=== PATIENT | male | born 1965 | race African-American/Black ===

== ENCOUNTER 2019-01-27 14:46 | Inpatient (IN) | payer OTHER ==
[~2019-01-27 14:46] MED LIST: chlordiazePOXIDE HCL 25 MG CAPSULE PO ONE
[2019-01-27 17:31] VITALS: BMI 16.1
--- NOTE | 2019-01-27 18:40 | HP ---
CIWA Score Nausea/Vomitin Muscle Tremors: 4-Moderate,w/Arms Extend Anxiety: 4-Mod. Anxious/Guarded Agitation: 1-Slight > Activity Paroxysmal Sweats: No Perspiration Orientation: 0-Oriented Tacttile Disturbances: 0-None Auditory Disturbances: 0-None Visual Disturbances: 0-None Headache: 0-None Present CIWA-Ar Total Score: 12 - Admission Criteria OASAS Guidelines: Admission for Medically Managed Detox: Requires at least one of the followin. CIWA greater than 12 2. Seizures within the past 24 hours 3. Delirium tremens within the past 24 hours 4. Hallucinations within the past 24 hours 5. Acute intervention needed for co occurring medical disorder 6. Acute intervention needed for co occurring psychiatric disorder 7. Severe withdrawal that cannot be handled at a lower level of care (continued vomiting, continued diarrhea, abnormal vital signs) requiring intravenous medication and/or fluids 8. Patient presents the following: CIWA greater than 12 Admission Criteria Met: Admission criteria met Admission ROS S - HPI Allergies/Adverse Reactions: Allergies Allergy/AdvReac Type Severity Reaction Status Date / Time shellfish derived Allergy Verified 01/27/19 18:27 History of Present Illness: pt here requesting detox from etoh use , reports 2 beers /day x 40 oz and 1- 2 drinks , x 4 years , reports withdrawal seizures currently on Dilantin , was in [facility] yesterday , d/c w/rx for Librium, pt requesting inpatient detox, states latest taken Dilantin is today , current symptoms as above . Denies blackouts, reports tremors if not drinking , reports wt loss 5-6 lbs in the last 2 months . denies illicits tobacco : denies , quit 25 years ago PMHX : as above, HLD , insomnia , shirin knee OA , lumbar disc displacement PSHx : abdominal surgery does not recall reason for surgery PSych ; denies meds : Dilantin, MVI, FE , folic a , ROsuvastatin , Disulfiram. SHx : lives w/ , used to be emergency vehicle driver , worked maintenance , stopped working in 2013 . Exam Limitations: Clinical Condition - Ebola screening Have you traveled outside of the country in the last 21 days: No Have you had contact with anyone from an Ebola affected area: No Have you been sick,other than usual withdrawal symptoms: No - Review of Systems Constitutional: See HPI, Loss of Appetite, Unintentional Wgt. Loss, Other ( reports hiccups at times) EENT: reports: Other (bifocals ,) Respiratory: reports: No Symptoms reported Cardiac: reports: No Symptoms Reported GI: reports: Poor Appetite, Indigestion, Other (GERD) : reports: No Symptoms Reported Musculoskeletal: reports: Back Pain, Joint Pain Integumentary: reports: Rash (shirin dorsum of hands, reports wearing powdered gloves for years thinks he has constant irritation from the powder) Neuro: reports: Seizure, Unsteady Gait Endocrine: reports: No Symptoms Reported Psychiatric: reports: Orientated x3, Anxious Patient History - Smoking Cessation Smoking history: Former smoker Have you smoked in the past 12 months: No If you are a former smoker, when did you quit?: 25 years ago Hx Chewing Tobacco Use: No Initiated information on smoking cessation: No Family Disease History - Family Disease History Family Disease History: Other: Father (d. 55 DM ), Mother (85 , htn), Brother ( 57 ), Sister (62 & 42 ), Daughter (32 A & W ) Other Family History: 9 y.o. grandson A & W Admission Physical Exam S - Vital Signs Vital Signs: Vital Signs - 24 hr 01/27/19 17:29 Temperature 98.1 F Pulse Rate 114 H Respiratory 18 Rate Blood Pressure 103/62 - Physical General Appearance: Yes: Moderate Distress, Cachetic, Tremorous, Anxious HEENTM: Yes: EOMI, Hearing grossly Normal, Normocephalic, Normal Voice Respiratory: Yes: Chest Non-Tender, Lungs Clear, Normal Breath Sounds Neck: Yes: No masses,lesions,Nodules, Trachea in good position Cardiology: Yes: Regular Rhythm, Regular Rate Abdominal: Yes: Normal Bowel Sounds, Flat, Soft, Surgical Scar (midline anterior infra umbilical) Genitourinary: Yes: Within Normal Limits Musculoskeletal: Yes: full range of Motion Extremities: Yes: Normal Capillary Refill, Normal Range of Motion, Tremors Neurological: Yes: Motor Strength 5/5 Integumentary: Yes: Normal Color - Diagnostic (1) Alcohol dependence Current Visit: Yes Status: Acute Qualifiers: Substance use status: in withdrawal (2) Alcohol withdrawal seizure Current Visit: Yes Status: Acute Qualifiers: Complication of substance-induced condition: uncomplicated Qualified Code(s ): F10.230 - Alcohol dependence with withdrawal, uncomplicated [facility] Breath Alcohol Content Breath Alcohol Content: 0 Urine Drug Screen - Results Drug Screen Negative: No Urine Drug Screen Results: BAR-Barbiturates, BZO-Benzodiazepines Inpatient Rehab Admission - Rehab Decision to Admit Inpatient rehab admission?: No
[2019-01-27] MEDS ORDERED: MAGNESIUM CITRATE 300 ML BOTTLE PO PRN (18:57)
[2019-01-27] MEDS ORDERED: MAGNESIUM HYDROX 2400MG/30ML ORAL SUSPENSION 30 ML CUP PO PRN (18:57)
[2019-01-27] MEDS ORDERED: MENTHOL/PHENOL 1 EACH UD MM PRN (18:57)
[2019-01-27] MEDS ORDERED: MAG HYDROX/AL HYDROX/SIMETH 30 ML UNIT-DOSE CUP PO PRN (18:57)
[2019-01-27] MEDS ORDERED: chlordiazePOXIDE HCL 10 MG CAPSULE PO PRN (18:57)
[2019-01-27] MEDS ORDERED: chlordiazePOXIDE HCL 25 MG CAPSULE PO SCH (23:00)
[2019-01-28] MEDS: THIAMINE HCL 100 MG TABLET (FP) PO SCH ×2 (02:10→22:18)
[2019-01-28] MEDS: ACETAMINOPHEN 325 MG TABLET (FP) PO PRN ×2 (02:20→22:19)
[2019-01-28] MEDS: chlordiazePOXIDE HCL 25 MG CAPSULE PO PRN ×2 (02:20→10:37)
[2019-01-28] MEDS: PHENYTOIN NA EXTENDED 100 MG CAPSULE (FP) PO SCH (10:36)
[2019-01-28] MEDS: PRENATAL VITAMINS W/ FOLIC ACID TABLET (FP) PO SCH (10:37)
--- NOTE | 2019-01-28 15:41 | PN ---
S CIWA - CIWA Score Nausea/Vomitin-No Nausea/No Vomiting Muscle Tremors: 2 Anxiety: 2 Agitation: 2 Paroxysmal Sweats: 1-Minimal Palms Moist Orientation: 1-Uncertain about Date Tacttile Disturbances: 0-None Auditory Disturbances: 0-None Visual Disturbances: 0-None Headache: 1-Very Mild CIWA-Ar Total Score: 9 BHS Progress Note (SOAP) Subjective: tremor sweating restlessness hesitate to talk about history of alcohol misuse Objective: 01/28/19 15:32 Vital Signs Temperature 98.3 F 01/28/19 13:40 Pulse Rate 97 H 01/28/19 13:40 Respiratory Rate 16 01/28/19 13:40 Blood Pressure 94/65 01/28/19 13:40 O2 Sat by Pulse Oximetry (%) lab pending 01/28/19 15:41 blood not draw today order for tomorrow set of admission blood work Assessment: 01/28/19 15:42 withdrawal sx Plan: continue detox encourage blood work
[2019-01-28] MEDS: MELATONIN 5 MG TABLETS PO PRN (22:20)
[2019-01-28] MEDS: chlordiazePOXIDE 5 MG CAPSULE PO SCH (22:22)
[2019-01-29] MEDS: chlordiazePOXIDE 5 MG CAPSULE PO SCH ×3 (05:36→17:34)
[2019-01-29] MEDS: PHENYTOIN NA EXTENDED 100 MG CAPSULE (FP) PO SCH (10:30)
[2019-01-29] MEDS: PRENATAL VITAMINS W/ FOLIC ACID TABLET (FP) PO SCH (10:31)
[2019-01-29 10:35] LABS: HEMATOCRIT 38.9 % (35.4-49); HEMOGLOBIN 13.3 GM/dL (11.7-16.9); MCH 33.3 pg (25.7-33.7); MCHC 34.3 g/dl (32.0-35.9); MEAN CELL VOLUME 97.2 fl (80-96); MEAN PLT VOLUME 8.2 fl (7.5-11.1); PLATELET COUNT 155 K/MM3 (134-434); RDW 13.3 % (11.9-15.9); WHITE BLOOD COUNT 4.8 K/mm3 (4.0-10.0)
[2019-01-29 10:42] LABS: ALBUMIN 3.4 g/dl (3.4-5.0); ALK PHOS 111 U/L (45-117); ANION GAP 9 MMOL/L (8-16); BILIRUBIN,TOTAL 0.2 mg/dL (0.2-1); BLOOD UREA NITROGEN 9 mg/dL (7-18); CHLORIDE 100 mmol/L (98-107); CO2 28 mmol/L (21-32); CREATININE 0.9 mg/dL (0.55-1.3); GLUCOSE,RANDOM 101 mg/dL (74-106); POTASSIUM 3.5 mmol/L (3.5-5.1); SGOT/AST 29 U/L (15-37); SGPT/ALT 37 U/L (13-61); SODIUM 138 mmol/L (136-145); TOT PROT 6.6 g/dl (6.4-8.2)
[2019-01-29] MEDS ORDERED: COLLOIDAL OATMEAL 1 BAR EACH TP PRN (14:08)
[2019-01-29] MEDS ORDERED: ERGOCALCIFEROL (VITAMIN D2) 50,000 UNIT CAPSULE (FP) PO ONE (14:08)
--- NOTE | 2019-01-29 14:13 | PN ---
[facility] CIWA - CIWA Score Nausea/Vomitin-No Nausea/No Vomiting Muscle Tremors: 2 Anxiety: 2 Agitation: 2 Paroxysmal Sweats: 1-Minimal Palms Moist Orientation: 0-Oriented Tacttile Disturbances: 0-None Auditory Disturbances: 0-None Visual Disturbances: 0-None Headache: 0-None Present CIWA-Ar Total Score: 7 BHS Progress Note (SOAP) Subjective: tremor sweating irritable taking dilantin Objective: 01/29/19 14:11 Vital Signs Temperature 97.9 F 01/29/19 13:49 Pulse Rate 90 01/29/19 13:49 Respiratory Rate 20 01/29/19 13:49 Blood Pressure 100/63 01/29/19 13:49 O2 Sat by Pulse Oximetry (%) Laboratory Last Values WBC 4.8 K/mm3 (4.0-10.0) 01/29/19 07:00 RBC 4.00 M/mm3 (4.00-5.60) 01/29/19 07:00 Hgb 13.3 GM/dL (11.7-16.9) 01/29/19 07:00 Hct 38.9 % (35.4-49) 01/29/19 07:00 MCV 97.2 fl (80-96) H 01/29/19 07:00 MCH 33.3 pg (25.7-33.7) 01/29/19 07:00 MCHC 34.3 g/dl (32.0-35.9) 01/29/19 07:00 RDW 13.3 % (11.9-15.9) 01/29/19 07:00 Plt Count 155 K/MM3 (134-434) 01/29/19 07:00 MPV 8.2 fl (7.5-11.1) 01/29/19 07:00 Sodium 138 mmol/L (136-145) 01/29/19 07:00 Potassium 3.5 mmol/L (3.5-5.1) 01/29/19 07:00 Chloride 100 mmol/L (98-107) 01/29/19 07:00 Carbon Dioxide 28 mmol/L (21-32) 01/29/19 07:00 Anion Gap 9 MMOL/L (8-16) 01/29/19 07:00 BUN 9 mg/dL (7-18) 01/29/19 07:00 Creatinine 0.9 mg/dL (0.55-1.3) 01/29/19 07:00 Creat Clearance w eGFR > 60 (>60) 01/29/19 07:00 Random Glucose 101 mg/dL (74-106) 01/29/19 07:00 Calcium 9.0 mg/dL (8.5-10.1) 01/29/19 07:00 Total Bilirubin 0.2 mg/dL (0.2-1) 01/29/19 07:00 AST 29 U/L (15-37) 01/29/19 07:00 ALT 37 U/L (13-61) 01/29/19 07:00 Alkaline Phosphatase 111 U/L (45-117) 01/29/19 07:00 Total Protein 6.6 g/dl (6.4-8.2) 01/29/19 07:00 Albumin 3.4 g/dl (3.4-5.0) 01/29/19 07:00 RPR Titer Nonreactive (NONREACTIVE) 01/29/19 07:00 lab noted Assessment: 01/29/19 14:12 withdrawal sx Plan: continue detox dilantin serum level pending
[2019-01-29] MEDS: METHYL SALICYLATE/MENTHOL OINT 30 GM TUBE TP SCH (15:23)
[2019-01-29] MEDS: THIAMINE HCL 100 MG TABLET (FP) PO SCH (22:11)
[2019-01-29] MEDS: chlordiazePOXIDE HCL 10 MG CAPSULE PO SCH (22:11)
[2019-01-29] MEDS: MELATONIN 5 MG TABLETS PO PRN (22:12)
[2019-01-30] MEDS: chlordiazePOXIDE HCL 10 MG CAPSULE PO SCH ×4 (05:08→22:09)
[2019-01-30] MEDS: PHENYTOIN NA EXTENDED 100 MG CAPSULE (FP) PO SCH (10:12)
[2019-01-30] MEDS: PRENATAL VITAMINS W/ FOLIC ACID TABLET (FP) PO SCH (10:13)
[2019-01-30] MEDS: METHYL SALICYLATE/MENTHOL OINT 30 GM TUBE TP SCH (10:14)
--- NOTE | 2019-01-30 17:10 | PN ---
[facility] Progress Note (SOAP) Subjective: Tremors (Improving), Sweating (Improving), Anxious (Improving). Patient Reports That Withdrawal / Detox Symptoms in General Are Improving with Each Day that He has been Admitted to Detox Unit. Objective: PATIENT A & O X 3, OBSERVED AMBULATING ON UNIT. IN NO ACUTE DISTRESS. 01/30/19 17:11 Vital Signs Temperature 96.9 F L 01/30/19 13:11 Pulse Rate 105 H 01/30/19 13:11 Respiratory Rate 20 01/30/19 13:11 Blood Pressure 93/68 01/30/19 13:11 O2 Sat by Pulse Oximetry (%) Laboratory Tests 01/29/19 01/29/19 01/29/19 07:00 07:00 07:00 WBC 4.8 RBC 4.00 Hgb 13.3 Hct 38.9 MCV 97.2 H MCH 33.3 MCHC 34.3 RDW 13.3 Plt Count 155 MPV 8.2 Sodium 138 Potassium 3.5 Chloride 100 Carbon Dioxide 28 Anion Gap 9 BUN 9 Creatinine 0.9 Creat Clearance w eGFR > 60 Random Glucose 101 Calcium 9.0 Total Bilirubin 0.2 AST 29 ALT 37 Alkaline Phosphatase 111 Total Protein 6.6 Albumin 3.4 Phenytoin RPR Titer Nonreactive 01/30/19 06:30 WBC RBC Hgb Hct MCV MCH MCHC RDW Plt Count MPV Sodium Potassium Chloride Carbon Dioxide Anion Gap BUN Creatinine Creat Clearance w eGFR Random Glucose Calcium Total Bilirubin AST ALT Alkaline Phosphatase Total Protein Albumin Phenytoin 9.8 L RPR Titer LABS NOTED. PHENYTOIN LEVEL RESULT NOTED. 01/30/19 17:12 Assessment: 01/30/19 17:12 WITHDRAWAL SYMPTOMS. Plan: CONTINUE DETOX. INCREASE DAILY PO FLUID INTAKE.
[2019-01-30] MEDS: THIAMINE HCL 100 MG TABLET (FP) PO SCH (22:09)
[2019-01-31] MEDS: PRENATAL VITAMINS W/ FOLIC ACID TABLET (FP) PO SCH (10:12)
[2019-01-31] MEDS: PHENYTOIN NA EXTENDED 100 MG CAPSULE (FP) PO SCH (10:12)
[2019-01-31] MEDS: chlordiazePOXIDE HCL 10 MG CAPSULE PO SCH ×2 (10:12→22:20)
[2019-01-31] MEDS: METHYL SALICYLATE/MENTHOL OINT 30 GM TUBE TP SCH (10:13)
[2019-01-31] MEDS: HYDROCORTISONE 0.5% TOPICAL CREAM 30 GM TUBE TP SCH ×2 (10:37→22:20)
[2019-01-31] MEDS: FLUTICASONE PROP 0.05% 16 GM NASAL SPRAY NS SCH ×2 (12:41→22:21)
--- NOTE | 2019-01-31 15:12 | PN ---
BHS Progress Note (SOAP) Subjective: Nasal Congestion, H/A. Objective: PATIENT A & O X 3, OBSERVED AMBULATING ON UNIT. IN NO ACUTE DISTRESS. 01/31/19 15:10 Vital Signs Temperature 96.4 F L 01/31/19 14:06 Pulse Rate 81 01/31/19 14:06 Respiratory Rate 20 01/31/19 14:06 Blood Pressure 103/61 01/31/19 14:06 O2 Sat by Pulse Oximetry (%) Laboratory Tests 01/29/19 01/29/19 01/29/19 07:00 07:00 07:00 WBC 4.8 RBC 4.00 Hgb 13.3 Hct 38.9 MCV 97.2 H MCH 33.3 MCHC 34.3 RDW 13.3 Plt Count 155 MPV 8.2 Sodium 138 Potassium 3.5 Chloride 100 Carbon Dioxide 28 Anion Gap 9 BUN 9 Creatinine 0.9 Creat Clearance w eGFR > 60 Random Glucose 101 Calcium 9.0 Total Bilirubin 0.2 AST 29 ALT 37 Alkaline Phosphatase 111 Total Protein 6.6 Albumin 3.4 Phenytoin RPR Titer Nonreactive 01/30/19 06:30 WBC RBC Hgb Hct MCV MCH MCHC RDW Plt Count MPV Sodium Potassium Chloride Carbon Dioxide Anion Gap BUN Creatinine Creat Clearance w eGFR Random Glucose Calcium Total Bilirubin AST ALT Alkaline Phosphatase Total Protein Albumin Phenytoin 9.8 L RPR Titer LABS NOTED. Assessment: 01/31/19 15:10 WITHDRAWAL SYMPTOMS. Plan: CONTINUE DETOX. PATIENT SCHEDULED FOR D/C TOMORROW. PATIENT REPORTS THAT HE CURRENTLY HAS AN ADEQUATE SUPPLY OF DILANTIN (FOR SEIZURE PREVENTION) AT HOME.
[2019-01-31] MEDS: THIAMINE HCL 100 MG TABLET (FP) PO SCH (22:20)
[2019-01-31] MEDS: MELATONIN 5 MG TABLETS PO PRN (22:23)
[2019-02-01 09:32] VITALS: BP 113/64; PULSE 83; TEMP 97.1
--- NOTE | 2019-02-01 10:25 | DS ---
[facility] Detox Discharge Summary Admission Date: 01/27/19 Discharge Date: 02/01/19 - History Present History: Alcohol Dependence Additional Comments: 53 years old male admitted on 01/27/19 for alcohol withdrawal stabilization completed alcohol detox regimen aftercare [place] Pertinent Past History: encourage to [employer] medication from the pharmacy keep medication list in wallet bring-in bottles of medication to aftercare appointment update medication list when change medication - Physical Exam Results Vital Signs: Vital Signs Temperature 97.1 F L 02/01/19 09:32 Pulse Rate 83 02/01/19 09:32 Respiratory Rate 16 02/01/19 09:32 Blood Pressure 113/64 02/01/19 09:32 O2 Sat by Pulse Oximetry (%) Pertinent Admission Physical Exam Findings: alcohol withdrawal sx Laboratory Last Values WBC 4.8 K/mm3 (4.0-10.0) 01/29/19 07:00 RBC 4.00 M/mm3 (4.00-5.60) 01/29/19 07:00 Hgb 13.3 GM/dL (11.7-16.9) 01/29/19 07:00 Hct 38.9 % (35.4-49) 01/29/19 07:00 MCV 97.2 fl (80-96) H 01/29/19 07:00 MCH 33.3 pg (25.7-33.7) 01/29/19 07:00 MCHC 34.3 g/dl (32.0-35.9) 01/29/19 07:00 RDW 13.3 % (11.9-15.9) 01/29/19 07:00 Plt Count 155 K/MM3 (134-434) 01/29/19 07:00 MPV 8.2 fl (7.5-11.1) 01/29/19 07:00 Sodium 138 mmol/L (136-145) 01/29/19 07:00 Potassium 3.5 mmol/L (3.5-5.1) 01/29/19 07:00 Chloride 100 mmol/L (98-107) 01/29/19 07:00 Carbon Dioxide 28 mmol/L (21-32) 01/29/19 07:00 Anion Gap 9 MMOL/L (8-16) 01/29/19 07:00 BUN 9 mg/dL (7-18) 01/29/19 07:00 Creatinine 0.9 mg/dL (0.55-1.3) 01/29/19 07:00 Creat Clearance w eGFR > 60 (>60) 01/29/19 07:00 Random Glucose 101 mg/dL (74-106) 01/29/19 07:00 Calcium 9.0 mg/dL (8.5-10.1) 01/29/19 07:00 Total Bilirubin 0.2 mg/dL (0.2-1) 01/29/19 07:00 AST 29 U/L (15-37) 01/29/19 07:00 ALT 37 U/L (13-61) 01/29/19 07:00 Alkaline Phosphatase 111 U/L (45-117) 01/29/19 07:00 Total Protein 6.6 g/dl (6.4-8.2) 01/29/19 07:00 Albumin 3.4 g/dl (3.4-5.0) 01/29/19 07:00 Phenytoin 9.8 ug/ml (10.0-20.0) L 01/30/19 06:30 RPR Titer Nonreactive (NONREACTIVE) 01/29/19 07:00 lab noted - Treatment Hospital Course: Detox Protocol Followed, Detoxed Safely, Responded well, Discharged Condition Good, Rehab Referral Accepted Patient has Accepted a Rehab Referral to: [facility] - Medication Discharge Medications: Ambulatory Orders Cyclobenzaprine HCl [Flexeril -] 10 mg PO DAILY 01/28/19 Folic Acid 1 mg PO DAILY 01/28/19 Multivit-Min/Iron Fum/Folic AC [Yzdpb-Sgtoknp-Ysevemea Tablet] 1 each PO DAILY 01/28/19 Thiamine HCl [B-1] 100 mg PO DAILY 01/28/19 Phenytoin Na Extended [Dilantin -] 300 mg PO DAILY #30 capsule 02/01/19 - Diagnosis (1) Seizure Current Visit: Yes Status: Chronic (2) Alcohol dependence Current Visit: Yes Status: Acute Qualifiers: Substance use status: in withdrawal Complication of substance-induced condition: uncomplicated Qualified Code(s): F10.230 - Alcohol dependence with withdrawal, uncomplicated - AMA Did Patient Leave Against Medical Advice: No
[2019-02-01] MEDS: METHYL SALICYLATE/MENTHOL OINT 30 GM TUBE TP SCH (11:47)
[2019-02-01] MEDS: PHENYTOIN NA EXTENDED 100 MG CAPSULE (FP) PO SCH (11:48)
[2019-02-01] MEDS: PRENATAL VITAMINS W/ FOLIC ACID TABLET (FP) PO SCH (11:48)
[2019-02-01] MEDS: HYDROCORTISONE 0.5% TOPICAL CREAM 30 GM TUBE TP SCH (11:48)
[2019-02-01] MEDS: FLUTICASONE PROP 0.05% 16 GM NASAL SPRAY NS SCH (11:48)
[2019-02-01] MEDS: chlordiazePOXIDE HCL 10 MG CAPSULE PO SCH (11:48)
== END 2019-02-01 09:55 | disposition home or self-care (01) | DRG 775 ==
LOC: YASAS 14:46 → Y3N 22:02
PROVIDERS: ADMIT Surgery; ATTEND Surgery
PROC: HZ2ZZZZ Detoxification Services for Substance Abuse Treatment (ICD-10-PCS; principal; 2019-01-27)
DX: F10.230 Alcohol dependence with withdrawal, uncomplicated (principal); E78.5 Hyperlipidemia, unspecified; G47.00 Insomnia, unspecified; M17.0 Bilateral primary osteoarthritis of knee; Z87.891 Personal history of nicotine dependence; Z86.69 Personal history of other diseases of the nervous system and sense organs
CPT/HCPCS: 36415; 80053; 80185; 85027; 86593